=== PATIENT | female | born 1960 | race Two or more races ===

== ENCOUNTER 2019-06-19 12:11 | Outpatient (CLI) | payer OTHER | END 2019-06-19 12:30 | disposition home or self-care (01) | LOC: NUCLEAR 12:11 | DX: M81.0 Age-related osteoporosis without current pathological fracture (principal); R07.89 Other chest pain ==

== ENCOUNTER 2021-11-14 09:57 | Outpatient (CLI) | payer OTHER | END 2021-11-14 09:58 | disposition home or self-care (01) | LOC: NUCLEAR 09:57 | PROVIDERS: ATTEND Internal Medicine Sports Medicine | DX: M85.80 Other specified disorders of bone density and structure, unspecified site (principal) ==

== ENCOUNTER 2025-03-12 07:08 | Outpatient (CLI) | payer OTHER | END 2025-03-12 07:10 | disposition home or self-care (01) | LOC: TOM 07:08 | PROVIDERS: ATTEND Internal Medicine | DX: R10.13 Epigastric pain (principal); K63.4 Enteroptosis; R19.4 Change in bowel habit ==